=== PATIENT | female | born 1985 | race African-American/Black ===

== ENCOUNTER 2023-06-23 15:23 | Outpatient (CLI) | payer OTHER, SELFPAY | END 2023-06-23 15:24 | disposition home or self-care (01) | PROVIDERS: PCP Physician Assistant; Visit Provider Physician Assistant | DX: Z01.419 Encounter for gynecological examination (general) (routine) without abnormal findings (principal); Z13.6 Encounter for screening for cardiovascular disorders; Z13.1 Encounter for screening for diabetes mellitus | CPT/HCPCS: 80061; 82947 ==

== ENCOUNTER 2024-03-01 15:23 | Outpatient (CLI) | payer OTHER, SELFPAY ==
[2024-03-01 23:25] LABS: Chlamydia DNA Amplified* NOT DETECTED (No Detected); GC DNA Amplified* NOT DETECTED (No Detected)
== END 2024-03-01 15:24 | disposition home or self-care (01) ==
PROVIDERS: Visit Provider Obstetrics & Gynecology
DX: N89.8 Other specified noninflammatory disorders of vagina (principal)
CPT/HCPCS: 87102; 87491; 87591

== ENCOUNTER 2024-07-23 17:13 | Outpatient (CLI) | payer OTHER, SELFPAY ==
--- NOTE | 2024-07-23 17:20 | CRLHL7_ITS ---
For Patients: As a result of the Century Cures Act, medical imaging exams and procedure reports are released immediately into your electronic medical record. You may view this report before your referring provider. If you have questions, please contact your health care provider. BILATERAL SCREENING MAMMOGRAM WITH COMPUTER-AIDED DETECTION AND TOMOSYNTHESIS TECHNIQUE: CC and MLO views were obtained. These mammographic images have been obtained using full-field digital technique. These mammographic images were interpreted with the benefit of computer-aided detection. Breast Tomosynthesis was used in this interpretation. COMPARISON FILM: Baseline. FINDINGS: The breasts are heterogeneously dense, which may obscure small masses IMPRESSION: There is no radiographic evidence for malignancy. ASSESSMENT: BI-RADS Category 2: Benign RECOMMENDATION: Routine screening mammogram in 1 year. A lay language report of this examination will be provided to the patient. Nick Mccabe M.D. Diagnostic Radiologist [email or web address] Transcribed: 3:37 [email or web address] kaur/Dictated by: Nick Mccabe MD @ 07/24/2024 10:28:00 AM (Electronically Signed)
== END 2024-07-23 17:14 | disposition home or self-care (01) ==
LOC: MAMMO 17:14
PROVIDERS: Visit Provider Physician Assistant
DX: Z12.31 Encounter for screening mammogram for malignant neoplasm of breast (principal); R92.2 Inconclusive mammogram
CPT/HCPCS: 77063; 77067

== ENCOUNTER 2025-03-24 10:12 | Outpatient (CLI) | payer OTHER, SELFPAY | END 2025-03-24 10:13 | disposition home or self-care (01) | PROVIDERS: Visit Provider Physician Assistant | DX: R35.0 Frequency of micturition (principal) | CPT/HCPCS: 87086; 87102 ==

== ENCOUNTER 2025-08-11 09:37 | Outpatient (CLI) | payer OTHER, SELFPAY | END 2025-08-11 09:38 | disposition home or self-care (01) | PROVIDERS: Visit Provider Physician Assistant | DX: D57.3 Sickle-cell trait (principal); Z13.1 Encounter for screening for diabetes mellitus; Z13.6 Encounter for screening for cardiovascular disorders; Z13.29 Encounter for screening for other suspected endocrine disorder | CPT/HCPCS: 80061; 82947; 84439; 84443 ==

== ENCOUNTER 2025-10-16 14:04 | Outpatient (CLI) | payer OTHER, SELFPAY ==
--- NOTE | 2025-10-16 14:40 | CRLHL7_ITS ---
For Patients: As a result of the Cures Act, medical imaging exams and procedure reports are released immediately into your electronic medical record. You may view this report before your referring provider. If you have questions, please contact your health care provider. INDICATION: BILATERAL SCREENING MAMMOGRAM, ASYMPTTOMATIC 39 Y/O FEMALE COMPARISON: 07/23/2024 TECHNIQUE: Digital mammogram in CC and MLO projections including computer-aided detection (CAD) and tomosynthesis. BREAST COMPOSITION: The breasts are heterogeneously dense, which may obscure small masses. FINDINGS: No suspicious findings. ASSESSMENT: BI-RADS 2 Benign RECOMMENDATION: Annual screening mammogram. A lay language report of this examination will be provided to the patient. Dictated by: Nick Mccabe MD @ 10/17/2025 09:05:35 (Electronically Signed)
== END 2025-10-16 14:05 | disposition home or self-care (01) ==
LOC: MAMMO 14:04
PROVIDERS: Visit Provider Physician Assistant
DX: Z12.31 Encounter for screening mammogram for malignant neoplasm of breast (principal); R92.333 Mammographic heterogeneous density, bilateral breasts
CPT/HCPCS: 77063; 77067

== ENCOUNTER 2025-10-20 08:15 | Outpatient (CLI) | payer OTHER, SELFPAY | END 2025-10-20 08:16 | disposition home or self-care (01) | LOC: NFLDREF 10-24 09:41 | PROVIDERS: Visit Provider Physician Assistant | DX: Z30.9 Encounter for contraceptive management, unspecified (principal); E03.8 Other specified hypothyroidism | CPT/HCPCS: 84439; 84443 ==